=== PATIENT | male | born 1960 | race Caucasian/White ===

== ENCOUNTER 2016-06-29 10:48 | Observation (INO) | payer BC ==
[~2016-06-29] VITALS: Ht 188 cm; Wt 124.1 kg
[~2016-06-29 10:48] MED LIST: ALLOPURINOL300 MG PO; ASPIRIN81 M2 PO; EXALGO32 MG PO; FISH OIL 1,2001 EAC4 PO; IMDUR60 MG PO; KLONOPIN1 MG PO; LIPITOR40 MG PO; LOPRESSOR25 MG PO; LYRICA150 MG PO; MULTIPLE VITAM1 EAC1 PO; MUPIROCIN15 GM TP; OMEPRAZOLE20 M2 PO; OXYCODONE-APAP1 EACH PO; PLAVIX75 MG PO; SYNTHROID50 MCG PO; ZOLOFT50 MG PO
[2016-06-29] MEDS ORDERED: ZOLOFT100 MG PO (16:08)
[2016-06-29] MEDS ORDERED: OXYCODONE HCL15 MG PO (16:09)
[2016-06-29 19:45] VITALS: BP 134/75
[2016-06-29 23:29] VITALS: BP 146/82
[2016-06-30 04:12] VITALS: BP 128/69
[2016-06-30 06:40] LABS: BASOPHIL COUNT 0.1 K/uL (0-0.1); EOSINOPHIL (%) 3.8 % (0-5); EOSINOPHIL COUNT 0.3 K/uL (0-0.3); HEMATOCRIT 38.1 % (38.0-50.0); IMMATURE GRANULOCYTE (%) 0.2 % (0.0-0.7); INSTRUMENT ABS NEUTROPHIL CT 4.5 K/uL; LYMPHOCYTE COUNT 2.7 K/uL (1.0-2.8); MCH 28.1 PG (29.0-34.0); MCHC 32.3 G/DL (30.0-36.0); MEAN PLAT.VOLUME 9.9 uM^3 (9.0-12.4); MONOCYTE (%) 9.4 % (3-12); MONOCYTE COUNT 0.8 K/uL (0-0.8); NEUTROPHIL (%) 53.9 % (45-76); NEUTROPHIL COUNT 4.5 K/uL (1.8-6.4); PLATELET COUNT 224 K/uL (156-360); RBC DIS.WIDTH-SD 44.9 % (39-53); RED BLOOD COUNT 4.38 M/uL (4.00-5.50); WHITE BLOOD COUNT 8.4 K/uL (4.1-10.2)
[2016-06-30 07:08] LABS: ANION GAP 6 MEQ/L (2-14); CHLORIDE 106 MEQ/L (99-109); GFR ESTIMATE (CALCULATED) > 59 mL/min/; GLUCOSE 106 mg/dL (70-99); POTASSIUM 4.1 MEQ/L (3.7-5.4); SAMPLE HEMOLYSIS CHECK 0; SAMPLE ICTERIC CHECK 0; SAMPLE LIPEMIA CHECK 0; SODIUM 141 MEQ/L (136-147); UREA NITROGEN (BUN) 15 mg/dL (9-23)
[2016-06-30 08:42] VITALS: BP 127/74
[2016-06-30] MEDS ORDERED: CLOPIDOGREL75 MG PO (09:43)
[2016-06-30] MEDS ORDERED: NITROSTAT0.4 MG SL (09:43)
[2016-06-30] MEDS ORDERED: ASPIR-LOW81 MG PO (09:43)
[2016-06-30 12:16] VITALS: BP 133/74
== END 2016-06-30 16:18 | disposition home or self-care (01) ==
LOC: CATH 10:48 → 4EAST 15:16 → 2SOUTH 15:16 → 4EAST 15:16
PROVIDERS: Internal Medicine Cardiovascular Disease
DX: R07.89 Other chest pain (principal); R06.02 Shortness of breath; I25.10 Atherosclerotic heart disease of native coronary artery without angina pectoris; I10 Essential (primary) hypertension; E78.2 Mixed hyperlipidemia; G89.29 Other chronic pain; G47.33 Obstructive sleep apnea (adult) (pediatric); Z95.5 Presence of coronary angioplasty implant and graft; K21.9 Gastro-esophageal reflux disease without esophagitis; Z87.891 Personal history of nicotine dependence; G90.09 Other idiopathic peripheral autonomic neuropathy
CPT/HCPCS: 80048; 85025; 85347; 93005; C1725; C1769; C1874; C1887; C1894; G0378; J0153; J1200; J1644; J2250; J3010; J7050